=== PATIENT | female | born 1945 | race Caucasian/White ===

== ENCOUNTER 2019-04-22 15:50 | Inpatient (IN) ==
[2019-04-22] MEDS ORDERED: NS 1,000 ML IV ONE ×2 (16:05→16:06)
[2019-04-22 16:46] LABS: BASO# 0.14 X1000 (0.0-0.2); BASO% 1.1 % (0.0-0.8); EOS# 0.05 X1000 (0.0-0.7); EOS% 0.4 % (0.0-10.0); HEMATOCRIT 30.3 % (37.0-47.0); HEMOGLOBIN 9.8 g/dL (12.0-16.0); IMM GRAN# 1.68 X1000 (0.0-0.04); IMM GRAN% 13.4 % (0.0-0.5); LYMPH# 1.36 X1000 (1.2-3.4); LYMPH% 10.8 % (20.5-51.1); MCH 30.5 PG (27-31); MCHC 32.3 g/dL (33-37); MCV 94.4 FL (81-99); MONO# 1.22 X1000 (0.11-0.59); MONO% 9.7 % (1.7-9.3); MPV 10.3 FL (7.4-10.4); NEUT# 8.09 X1000 (1.4-6.5); NEUT% 64.6 % (42.2-75.2); PLT 258 X1000 (130-400); RBC 3.21 XMIL (4.2-5.4); RDW 16.6 % (11.5-14.5); WBC 12.54 X1000 (4.8-10.8)
[2019-04-22 16:52] LABS: ALB/GLOB RATIO 1.2; ALBUMIN 3.5 g/dL (3.5-5.0); CREATININE 1.2 mg/dL (0.5-0.9); MAGNESIUM 1.7 mg/dL (1.5-2.7); POTASSIUM 4.9 mmol/L (3.5-5.1); TOTAL BILIRUBIN 0.4 mg/dL (0.20-1.00); TOTAL PROTEIN 6.4 g/dL (6.3-8.3)
--- NOTE | 2019-04-22 17:56 | PROVIDER DOCUMENTATION ---
This chart was entered by Lala Kaplan Scribe, acting as scribe for Haider Myles MD. HPI-General Adult - General Chief Complaint: Weakness Stated Complaint: CANCER PT-DEHYDRATED Time Seen by Provider: 04/22/19 16:03 Source: patient Allergies/Adverse Reactions: Patient Allergies Allergy/AdvReac Type Severity Reaction Status Date / Time Penicillins Allergy ANAPHYLAXIS Verified 04/22/19 16:03 Sulfa (Sulfonamide Allergy NAUSEA/VOMI Verified 04/22/19 16:03 Antibiotics) TING Home Medications: Home Medication List Medication Instructions Recorded Confirmed Last Taken Type Acetaminophen/Diphenhydramine 1 ea PO HS 01/28/19 02/02/19 01/31/19 23:00 History [Tylenol Pm] Amlodipine Besylate [Norvasc] 2.5 mg PO DAILY 01/28/19 02/02/19 02/01/19 09:00 History Aspirin 81 mg PO DAILY 01/28/19 02/02/19 01/30/19 22:00 History Atorvastatin Calcium [Lipitor] 20 mg PO DAILY 01/28/19 02/02/19 02/01/19 22:00 History Cholecalciferol (Vitamin D3) 2,000 unit PO DAILY 01/28/19 02/02/19 02/01/19 22:00 History [Vitamin D3] Diphenoxylate/Atropine [Lomotil] 1 ea PO 4XDAY PRN PRN 01/28/19 02/02/19 01/30/19 12:00 History Flecainide Acetate 0.5 tab PO BID 01/28/19 02/02/19 02/01/19 22:00 History Glipizide 5 mg PO BID 01/28/19 02/02/19 02/01/19 22:00 History Metformin HCl 1,000 mg PO BID 01/28/19 02/02/19 02/01/19 09:00 History Metronidazole [Flagyl] 250 mg PO 4XDAY 01/28/19 02/02/19 01/30/19 12:00 History Pantoprazole [Protonix] 40 mg PO DAILY@0700 01/28/19 02/02/19 02/01/19 09:00 History Rivaroxaban [Xarelto] 20 mg PO DAILY 01/28/19 02/02/19 01/31/19 09:00 History Sucralfate 1 gm PO PRN PRN 01/28/19 02/02/19 02/01/19 13:00 History Hydrocodone/APAP 7.5 mg/325 mg 1 ea PO Q6H PRN PRN #15 tab 02/02/19 Unknown Rx [[place]-7.5] - History of Present Illness -Gen Adult Nature of Presenting Problems: 74 y/o female presents to ED with weakness, dehydration, and N/V/D onset several months ago. Pt reports she is currently on chemo for breast cancer and has intermittent bouts of these symptoms. Pt states she received IV fluids in office 2 days ago, but still feels dehydrated. Pt also reports abdominal soreness from vomiting. Pt is alert and oriented. Location of Pain/Injury: reports: none Pain Radiation: reports: no radiation Quality of Pain: reports: none Severity: reports: moderate Onset/Duration: reports: unsure (several months ago) Timing: reports: still present, intermittent Context/Activities at Onset: reports: none Modifying Factors: improves with: nothing Associated Symptoms: reports: diarrhea, nausea, vomiting, weakness, other (dehydration) Similar Symptoms Previously?: Yes Recently seen or treated by another doctor?: Yes Review of Systems - Adult - REVIEW OF SYSTEMS - ADULT Constitutional: reports: other (dehydration). denies: chills, fever Eyes: reports: no symptoms reported Ears, Nose, Mouth & Throat: reports: no symptoms reported Cardiovascular: denies: chest pain, palpitations Respiratory: denies: cough, shortness of breath Gastrointestinal: reports: diarrhea, nausea, vomiting. denies: abdominal pain Genitourinary: reports: no symptoms reported Musculoskeletal: denies: back pain, joint pain Integumentary: reports: no symptoms reported Neurological: reports: other (weakness). denies: dizziness/vertigo, seizure Psychiatric: reports: no symptoms reported Endocrine: reports: no symptoms reported Hematologic/Lymphatic: reports: no symptoms reported Allergic/Immunologic: reports: no symptoms reported All Other Systems: Reviewed and Negative Past History - Adult - PAST MEDICAL HISTORY-ADULT Review of Records: reports: Old Records Reviewed, Nursing Assessment Review, Medications Reviewed Major Childhood Illnesses: reports: denies history Cardiovascular: reports: HTN Respiratory: reports: sleep apnea Gastrointestinal: reports: denies history Obstetrical/Gynecological: reports: other (breast cancer) Genitourinary: reports: denies history Musculoskeletal: reports: denies history Neurological: reports: CVA Endocrine/Immune: reports: Diabetes Other Conditions: reports: denies history - PRIOR SURGERIES/PROCEDURES Surgical/Procedure History: reports: hysterectomy, breast (mastectomy) - IMMUNIZATION STATUS Childhood Immunizations: See Nurse Assessment Flu Vaccine: See Nurse Assessment - FAMILY HISTORY Family History: reviewed, not pertinent - SOCIAL HISTORY Smoking: non-smoker Substance Use: none/never Alcohol Use Frequency: never Living Situation: family Physical Exam-General - PHYSICAL EXAM-ADULT Initial Vital Signs Reviewed: Yes - CONSTITUTIONAL General Appearance: appears well, alert, no apparent distress - EYES Eyes: PERRL/EOMI, pink conjunctivae - HEAD, EARS, NOSE, MOUTH & THROAT HENMT: normocephalic/atraumatic, moist mucous membranes, normal ENT inspection - NECK Neck: non-tender, full range of motion - RESPIRATORY Respiratory: chest non-tender, lungs clear, normal breath sounds - CARDIOVASCULAR Cardiovascular: normal peripheral pulses, regular rate, rhythm - GASTROINTESTINAL (ABDOMEN) Abdominal Exam: normal bowel sounds, non tender, soft - MUSCULOSKELETAL Back Exam: normal inspection, no CVA tenderness, no vertebral tenderness Extremity: normal range of motion, non-tender, normal gait - SKIN Integumentary: warm/dry, pallor. negative: normal color - NEUROLOGIC Neurologic: grossly normal - PSYCHIATRIC Psych/Mental Status: normal mood/affect, normal thought content, normal thought process, oriented x 3 Progress - PLAN OF CARE/RESULTS Progress/Plan/Lab Results: Vital Signs - 8 hr 04/22/19 15:52 Temperature 98.2 F Pulse Rate 89 Respiratory Rate 18 Blood Pressure 103/54 O2 Sat by Pulse Oximetry 98 Orders Category Date Time Status CBC WITH DIFF [HEME] Stat Lab 04/22/19 16:05 Uncollected COMPREHENSIVE METABOLIC PANEL [CHEM] Stat Lab 04/22/19 16:05 Uncollected MAGNESIUM [CHEM] Stat Lab 04/22/19 16:05 Uncollected 0.9% Sodium Chloride Inj [Ns] 1,000 ml Med 04/22/19 16:05 Active IV 999 mls/hr 0.9% Sodium Chloride Inj [Ns] 1,000 ml Med 04/22/19 16:06 Active IV 999 mls/hr Laboratory Tests 04/22/19 04/22/19 16:14 16:14 WBC 12.54 H RBC 3.21 L Hgb 9.8 L Hct 30.3 L MCV 94.4 MCH 30.5 MCHC 32.3 L RDW Std Deviation 16.6 H Plt Count 258 MPV 10.3 Immature Gran % (Auto) 13.4 H Neut % (Auto) 64.6 Lymph % (Auto) 10.8 L [place] % (Auto) 9.7 H Eos % (Auto) 0.4 Baso % (Auto) 1.1 H Immature Gran # (Auto) 1.68 H Neut # (Auto) 8.09 H Lymph # (Auto) 1.36 Davidson # (Auto) 1.22 H Eos # (Auto) 0.05 Baso # (Auto) 0.14 Sodium 136 Potassium 4.9 Chloride 97 L Carbon Dioxide 21 L Anion Gap 18 BUN 9 Creatinine 1.2 H Estimated GFR/1.73 m2 44 BUN/Creatinine Ratio 8 Glucose 167 H Calculated Osmolality 274 Calcium 9.0 Magnesium 1.7 Total Bilirubin 0.40 AST 24 ALT 22 Alkaline Phosphatase 182 H Total Protein 6.4 Albumin 3.5 Globulin 2.9 Albumin/Globulin Ratio 1.2 Result Diagrams: 04/22/19 16:14 04/22/19 16:14 - REASSESSMENT Reassessment #1 Time Reassessed: 18:00 Status: improving (Pt reports she is feeling better. Fluids are still going.) Reassessment #2 Time Reassessed: 18:40 Status: improving (patient reports signif improvement; fluids are complete. will d/c for fu with Dr. Monson) - EKG 1 Time of EKG reading by physician:: 16:07 EKG Read and Signed by:: Haider Myles EKG Interpretation (*Must complete 3 of following elements*): Abnormal Rate: 78 Rhythm: NSR [place]: normal QRS: other (L posterior fascicular block) [place] Interval: prolonged ST Wave: non-specific ST changes Departure - Departure Date of Disposition Decision: 04/22/19 Time of Disposition Decision: 18:41 DIAGNOSIS: Dehydration, Chronic diarrhea, Adverse effects of medication Disposition: HOME 01 Certified Medical Emergency: Emergent Condition: Stable Referrals and Follow-Ups: None,PCP [Primary Care Provider] - - Critical Care Note This patient required my direct & personal management of CC.: No Attestation - Physician/ URMILA Attestation Patient care was provided by Advanced Practice Provider:: No The physician spent face to face time with patient:: Yes Advanced Practice Provider documentation review:: Supervising physician onsite and consulted in the evaluation and care of this patient. The physician did have a face to face encounter with the patient. This chart was documented by the indicated scribe, (Lala Kaplan, Yaa) and accurately reflects the services I performed and decisions made by me, Haider Myles MD, as attested by the provider's signature.
[2019-04-22 19:42] LABS: URINE SOURCE CLEAN CATCH
[2019-04-22 19:59] LABS: BILIRUBIN URINE NEGATIVE (NEGATIVE); BLOOD URINE TRACE (NEGATIVE); COLOR YELLOW; GLUCOSE URINE NEGATIVE (NEGATIVE); KETONE URINE NEGATIVE (NEGATIVE); LEUKOCYTES URINE NEGATIVE (NEGATIVE); NITRITE URINE NEGATIVE (NEGATIVE); PH URINE 5.5; PROTEIN URINE NEGATIVE (NEGATIVE); SP GRAVITY URINE 1.015; TURBIDITY URINE CLEAR (CLEAR); UR EPITHELIAL CELLS <10 /HPF (<10); URINE BACTERIA NEGATIVE /HPF; URINE RBC <10 /HPF (<10); URINE WBC <10 /HPF (<10); UROBILINOGEN URINE NORMAL (NORMAL)
--- NOTE | 2019-04-22 20:38 | Diag Imaging Result Doc PS360 ---
EXAM: CHEST-2 VIEWS 04/22/2019 HISTORY: FEVER, ON CHEMO TECHNIQUE: PA and lateral chest COMMENT: There is bibasilar atelectasis which was not the case at the time the previous study of 02/02/2019. The lungs are slightly better expanded than they were on the previous study. There is ill-defined opacity in the suprahilar region in both upper lobes which was also present previously. The heart size and pulmonary vascularity are stable in appearance. IMPRESSION: Minimal bibasilar atelectasis. Electronically signed by Harpal Galloway 04/22/2019 8:36 PM
[2019-04-22] MEDS ORDERED: MAXIPIME 2 GM in NS 100 ML IV ONE (21:10)
--- NOTE | 2019-04-22 21:50 | HISTORY AND PHYSICAL ---
PRIMARY CARE PHYSICIAN: Dr. Julian. CHIEF COMPLAINT: Fever. Not feeling well and also cough times the past week. HISTORY OF PRESENTING ILLNESS: A 72-year-old female with a history of breast cancer on chemotherapy, diabetes mellitus type 2, atrial fibrillation, CVA, and hypertension who presented to emergency department with 1-week history of having intermittent fevers and not feeling well. She had called her oncologist and she had laboratories done with that showed that she was neutropenic she was put on oral antibiotics; however, she did not have any improvement. She started having worsening fevers and coughing and subsequently had come to the emergency department. In the ED, she was evaluated and due to her presenting symptoms, it was thought that she would need admission for further management. At the time of my examination, she had denied any headache, vomiting, chest pain, shortness of breath or any weight changes but complained of cough and fever and not feeling well. PAST MEDICAL HISTORY: Includes diabetes mellitus type 2, chronic atrial fibrillation, CVA, hypertension, breast cancer. PAST SURGICAL HISTORY: Bilateral mastectomy, hysterectomy. ALLERGIES: Penicillin and sulfa. CURRENT MEDICATIONS: Include Norvasc 2.5 mg p.o. daily, aspirin 81 mg p.o. daily, Lipitor 20 mg p.o. daily, flecainide 150 mg half tablet p.o. b.i.d., glipizide 5 mg p.o. b.i.d., [place] 7.5 mg 1 p.o. q.6 hours, metformin 1000 mg p.o. b.i.d., pantoprazole 40 mg p.o. daily, Xarelto 20 mg p.o. daily, sucralfate 1 g p.o. daily. SOCIAL HISTORY: No history of smoking, alcohol or illicit drug use. FAMILY HISTORY: Positive for coronary disease in mother and father. REVIEW OF SYSTEMS: Fourteen point review of system is as HPI. Other systems negative. PHYSICAL EXAMINATION: GENERAL: Cooperative, friendly female. She is resting comfortably now. VITAL SIGNS: Temperature 98.2 degrees, pulse 89, respiration 18, blood pressure 103/54. HEENT: Atraumatic, normocephalic. Extraocular movements intact. PERRLA. NECK: No masses. CHEST: Bibasilar rales. CARDIOVASCULAR: Regular rate and rhythm. ABDOMEN: Soft. Positive bowel sounds. EXTREMITIES: Trace edema. NEUROLOGIC: She is awake, alert, oriented x3. : No bladder distention. SKIN: Warm. LABORATORIES AND STUDIES: WBCs 12.54, hemoglobin 9.8, hematocrit 30.3, platelets 258,000. Sodium 136, potassium 4.9, chloride 97, CO2 is 21, BUN is 9, creatinine is 1.2, glucose is 167. UA shows trace blood and negative for bacteria. Chest x-ray shows bibasilar atelectasis and ill-defined opacity in suprahilar region on both upper lobes. ASSESSMENT: A 74-year-old female with a history of breast cancer on chemotherapy, diabetes mellitus type 2, atrial fibrillation, cerebrovascular accident, hypertension who presented to emergency department with 1-week history of having fevers and cough. She was put on oral antibiotics by her oncologist for neutropenia. However, she continued to have fevers and persistent cough. It was suspected possibly she had early signs of pneumonia versus bronchitis. Subsequently, she will require admission for further management. DIAGNOSES: 1. Neutropenic fever. 2. Suspected pneumonia. 3. Chronic atrial fibrillation. 4. Diabetes mellitus type 2. 5. Hypertension. PLAN: 1. We will admit patient to medical floor with telemetry. 2. We will check blood cultures. Start patient on IV antibiotics. 3. We will also consult her oncologist. 4. We will continue her home medications for atrial fibrillation. 5. We will monitor blood glucose and put patient on sliding scale insulin regimen. 6. The patient is already on Xarelto and this will suffice for deep vein thrombosis prophylaxis. 7. We will continue to follow and reassess. Make further recommendation based on patient's clinical course. cc: Sachin Ramos MD
[2019-04-23] MEDS: NS 1,000 ML IV SCH ×2 (00:30→12:54)
[2019-04-23] MEDS: HUMULIN R SUBQ SCH ×4 (07:00→21:13)
[2019-04-23 07:40] LABS: BASO# 0.11 X1000 (0.0-0.2); BASO% 0.8 % (0.0-0.8); EOS# 0.05 X1000 (0.0-0.7); EOS% 0.3 % (0.0-10.0); HEMATOCRIT 26.5 % (37.0-47.0); HEMOGLOBIN 8.5 g/dL (12.0-16.0); IMM GRAN# 1.93 X1000 (0.0-0.04); IMM GRAN% 13.5 % (0.0-0.5); LYMPH# 1.27 X1000 (1.2-3.4); LYMPH% 8.9 % (20.5-51.1); MCH 30.6 PG (27-31); MCHC 32.1 g/dL (33-37); MCV 95.3 FL (81-99); MONO# 1.49 X1000 (0.11-0.59); MONO% 10.4 % (1.7-9.3); MPV 9.9 FL (7.4-10.4); NEUT# 9.48 X1000 (1.4-6.5); NEUT% 66.1 % (42.2-75.2); PLT 218 X1000 (130-400); RBC 2.78 XMIL (4.2-5.4); WBC 14.33 X1000 (4.8-10.8)
[2019-04-23 07:43] LABS: BANDS 6 % (0-1); LYMPHS 8 % (21-51); MONO 16 % (1-9); SEGS 64 % (42-75)
[2019-04-23] MEDS: ZOFRAN IV PRN (07:48)
--- NOTE | 2019-04-23 08:39 | EKG Report ---
Test Performed on : 04/22/2019 4:06:12 PM Test Reason : ED. No order in [place] Blood Pressure : / mmHG Vent. Rate : 078 BPM Atrial Rate : 078 BPM P-R Int : 174 ms QRS Dur : 084 ms QT Int : 444 ms P-R-T Axes : 000 136 160 degrees QTc Int : 506 ms Normal sinus rhythm. Left posterior fascicular block Nonspecific ST abnormality Prolonged QT Abnormal ECG No previous ECGs available Unconfirmed Result
[2019-04-23] MEDS ORDERED: MAXIPIME 1 GM in NS 50 ML IV SCH (10:00)
[2019-04-23] MEDS ORDERED: REGLAN PO PRN (12:35)
[2019-04-23] MEDS ORDERED: MAXIPIME 1 GM in NS 50 ML IV ONE (12:42)
--- NOTE | 2019-04-23 17:25 | PROGRESS NOTE ---
DATE: 04/23/2019 SUBJECTIVE: Patient has no major complaints. OBJECTIVE: Vital Signs: Blood pressure 100/66, heart rate 78, respiratory rate 15, temperature 99.8 degrees, with no fever documented. Cardiovascular: Regular rate and rhythm. Pulmonary: Bilateral breath sounds, diminished at the bases. GI: Soft, nontender, nondistended. Bowel sounds are positive. LABS: White count is 14, but she is not neutropenic. Her segmented neutrophils are 64 with 6% bands. She is not neutropenic. She does have a persistent fever in any case. ASSESSMENT AND PLAN: 1. The patient is admitted for fever while on chemotherapy, and she does not meet criteria for neutropenia. We will follow. We will continue empiric antibiotics. I bumped up her cefepime based on her kidney function and things of that nature. 2. Atrial fibrillation, rate controlled. She is on Xarelto and flecainide. 3. We will continue to monitor her electrolytes. 4. Dr. Monson has been consulted. 5. She does report protracted issues with abdominal pain. 6. If she has persistent fevers, then we will need to get repeat cultures, including culture of her port, but at this point she may just have pneumonia while developing bone marrow suppression, but she does not meet criteria for neutropenic fever. We will continue to follow. cc: Sherman Gilbert MD
[2019-04-23] MEDS: NORCO-7.5 PO PRN (19:52)
[2019-04-23] MEDS: CELEXA PO SCH (21:13)
[2019-04-23] MEDS: ZINC SULFATE PO SCH (21:14)
[2019-04-23] MEDS: TAMBOCOR PO SCH (21:14)
[2019-04-23] MEDS: ASPIRIN PO SCH (21:14)
[2019-04-24] MEDS: NS 1,000 ML IV SCH (00:47)
[2019-04-24] MEDS: MAXIPIME 2 GM in NS 100 ML IV SCH ×3 (00:47→23:36)
[2019-04-24] MEDS: ZOFRAN IV PRN ×2 (01:52→10:50)
[2019-04-24] MEDS: NORCO-7.5 PO PRN ×2 (04:11→10:50)
[2019-04-24] MEDS: HUMULIN R SUBQ SCH ×4 (06:15→21:33)
[2019-04-24] MEDS: PROTONIX PO SCH (06:16)
[2019-04-24 07:45] LABS: BASO# 0.05 X1000 (0.0-0.2); BASO% 0.3 % (0.0-0.8); EOS# 0.05 X1000 (0.0-0.7); EOS% 0.3 % (0.0-10.0); HEMATOCRIT 25.6 % (37.0-47.0); HEMOGLOBIN 8.1 g/dL (12.0-16.0); IMM GRAN# 1.78 X1000 (0.0-0.04); IMM GRAN% 11.2 % (0.0-0.5); LYMPH# 1.03 X1000 (1.2-3.4); LYMPH% 6.5 % (20.5-51.1); MCH 29.9 PG (27-31); MCHC 31.6 g/dL (33-37); MCV 94.5 FL (81-99); MONO# 1.32 X1000 (0.11-0.59); MONO% 8.3 % (1.7-9.3); MPV 10.1 FL (7.4-10.4); NEUT# 11.68 X1000 (1.4-6.5); NEUT% 73.4 % (42.2-75.2); PLT 206 X1000 (130-400); RBC 2.71 XMIL (4.2-5.4); RDW 16.8 % (11.5-14.5); WBC 15.91 X1000 (4.8-10.8)
[2019-04-24 08:07] LABS: AGAP 11; BUN 9 mg/dL (8-22); CHLORIDE 105 mmol/L (98-107); COSMO 274; CREATININE 0.9 mg/dL (0.5-0.9); ESTIMATED GFR > 60; GLUCOSE 157 mg/dL (70-104); MAGNESIUM 1.6 mg/dL (1.5-2.7); SODIUM 136 mmol/L (136-145); TCO2 20 mmol/L (25-35)
[2019-04-24 08:18] LABS: BANDS 8 % (0-1); LYMPHS 2 % (21-51); MONO 4 % (1-9); SEGS 82 % (42-75)
[2019-04-24] MEDS: VICON-C PO SCH (08:49)
[2019-04-24] MEDS: NORVASC PO SCH (08:50)
[2019-04-24] MEDS: TAMBOCOR PO SCH ×2 (08:50→21:34)
[2019-04-24] MEDS: CENTRUM SILVER PO SCH (08:50)
[2019-04-24] MEDS: XARELTO PO SCH (08:50)
[2019-04-24] MEDS: LIPITOR PO SCH (08:50)
[2019-04-24] MEDS: ZINC SULFATE PO SCH ×2 (08:50→21:34)
--- NOTE | 2019-04-24 16:12 | PROGRESS NOTE ---
DATE: 04/24/2019 OBJECTIVE: Vital Signs: Blood pressure is 130/48, heart rate 79, respiratory 18, temperature 98.7 degrees. Cardiovascular: Regular rate and rhythm. Pulmonary: Bilateral breath sounds. Clear to auscultation. GI: Soft, nontender, nondistended. Bowel sounds are positive. LABORATORY DATA: Her white count is 15, hemoglobin and hematocrit 8 and 25, platelets of 206. Electrolytes are stable. PROBLEM LIST: 1. Fever in the setting of recent chemotherapy, but the patient is not neutropenic. This is not neutropenic fever. She was never neutropenic as far as I can tell, so we will continue cefepime. She says that has caused her abdominal pain, but not consistently. We will pursue CT of the abdomen and pelvis. She does have risk factors for an overwhelming infection. She is definitely immune compromised, so we will pursue further imaging to make sure that there is nothing dire going on in chest and abdomen. 2. Atrial fibrillation appears to be stable. Continue regular medications. DISPOSITION: Pending her clinical status, she has technically not had any fevers since yesterday, so we will follow. cc: Sherman Gilbert MD
[2019-04-24] MEDS: ASPIRIN PO SCH (21:34)
[2019-04-24] MEDS: CELEXA PO SCH (21:34)
[2019-04-25] MEDS: ZOFRAN IV PRN ×3 (01:59→10:37)
[2019-04-25] MEDS: HUMULIN R SUBQ SCH ×4 (06:04→20:01)
[2019-04-25] MEDS: PROTONIX PO SCH (06:08)
[2019-04-25] MEDS: NORCO-7.5 PO PRN (06:13)
[2019-04-25 07:13] LABS: BASO# 0.08 X1000 (0.0-0.2); BASO% 0.5 % (0.0-0.8); EOS# 0.03 X1000 (0.0-0.7); EOS% 0.2 % (0.0-10.0); HEMOGLOBIN 8.3 g/dL (12.0-16.0); IMM GRAN# 1.54 X1000 (0.0-0.04); IMM GRAN% 9.3 % (0.0-0.5); LYMPH# 0.97 X1000 (1.2-3.4); LYMPH% 5.9 % (20.5-51.1); MCH 30.1 PG (27-31); MCHC 31.9 g/dL (33-37); MCV 94.2 FL (81-99); MONO% 7.9 % (1.7-9.3); MPV 10.3 FL (7.4-10.4); NEUT# 12.56 X1000 (1.4-6.5); NEUT% 76.2 % (42.2-75.2); PLT 207 X1000 (130-400); RBC 2.76 XMIL (4.2-5.4); WBC 16.48 X1000 (4.8-10.8)
[2019-04-25 07:30] LABS: AGAP 14; BUN 9 mg/dL (8-22); CALCIUM 8.1 mg/dL (8.8-10.2); CHLORIDE 103 mmol/L (98-107); COSMO 273; CREATININE 0.8 mg/dL (0.5-0.9); ESTIMATED GFR > 60; GLUCOSE 132 mg/dL (70-104); POTASSIUM 3.6 mmol/L (3.5-5.1); SODIUM 136 mmol/L (136-145); TCO2 19 mmol/L (25-35)
[2019-04-25 07:34] LABS: BANDS 6 % (0-1); BASO 2 % (0-1); LYMPHS 4 % (21-51); MONO 6 % (1-9); SEGS 78 % (42-75)
--- NOTE | 2019-04-25 08:04 | Diag Imaging Result Doc PS360 ---
EXAM: CT THORAX/ABD/PELVIS W/CON 04/24/2019 HISTORY: pneumonia,pain,persistent fever TECHNIQUE: This exam was performed using automated exposure control, adjustment of mA or kV according to patient size, and/or use of iterative reconstruction technique. COMMENT: Thorax: There are no filling defects present in the pulmonary arteries. The aorta is normal in caliber and there is no evidence of dissection. There are small bilateral pleural fluid collections. There is a hiatal hernia. There are surgical clips in the left axillary region. There is a ill-defined soft tissue density present in the lower axilla extending along the chest wall. There is also fluid collection or hematoma in the anterior right chest wall. This is presumably secondary to bilateral mastectomy which has occurred prior to the previous study of 04/03/2019. There is a relatively prominent node present in the left axilla measuring up to 11 mm which has decreased in size since 01/08/2019 at which time it measured over 13 mm. There is a Port-A-Cath on the right in the internal jugular. There are some nonspecific aorticopulmonary window nodes measuring up to 10 mm in size. These do not appear to have changed appreciably since the previous study of 01/08/2019. The pleural fluid collections and basilar atelectasis present bilaterally have occurred since that time. There are patchy ill-defined groundglass opacities bilaterally which may be indicative of pneumonia and/or pulmonary edema. This was also not present previously. There is a hiatal hernia. The regional skeleton appears to be intact. ABDOMEN: There are some atherosclerotic calcifications in the aorta but there is no evidence of aneurysm and the mesenteric and renal arteries are patent. There is no evidence of nephrolithiasis. There is some fullness of the renal pelves bilaterally which may be congenital. There are bilateral renal cortical cysts with a fairly large cyst in the lower pole on the left measuring 3.6 cm in diameter. There is pericholecystic fluid. There are no apparent gallstones. The spleen and adrenal glands are within normal limits. The pancreas is somewhat atrophic in appearance. The liver is unchanged in appearance since the previous study of 04/03/2019. There is a small lucency in the medial anterior left hepatic lobe which has not changed. 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 There is no evidence of significant adenopathy. There is no evidence of bowel obstruction. There is a partially calcified and fat density nodule present in the left iliac fossa region which was also present on the previous study and is presumably of no significance. Pelvis: There is diverticulosis in the sigmoid colon without evidence of active diverticulitis. There is a small amount of free fluid present which was not the case on the previous study. There has been hysterectomy. The urinary bladder is not distended. There are degenerative disc and facet changes in the lumbar spine particularly at the L4-5 level. There is dense calcification in the disc space at L1-2 which has not changed since the previous study. There is a well-circumscribed lucency in the posterior L1 vertebral body slightly to the right of midline which has not changed since the previous study and is probably related to a hemangioma. IMPRESSION: 1. Bilateral pleural effusions with bibasilar atelectasis versus pneumonia. Pulmonary edema versus pneumonia throughout the lungs. 2. Pericholecystic fluid. The possibility of acalculous cholecystitis cannot be excluded. 3. Nonspecific free pelvic fluid. Electronically signed by Harpal Galloway 04/25/2019 8:01 AM
[2019-04-25] MEDS: XARELTO PO SCH (08:19)
[2019-04-25] MEDS: CENTRUM SILVER PO SCH (08:19)
[2019-04-25] MEDS: VICON-C PO SCH (08:19)
[2019-04-25] MEDS: ZINC SULFATE PO SCH ×2 (08:19→20:00)
[2019-04-25] MEDS: TAMBOCOR PO SCH ×2 (08:19→20:01)
[2019-04-25] MEDS: LIPITOR PO SCH (08:19)
[2019-04-25] MEDS: NORVASC PO SCH (08:19)
[2019-04-25] MEDS: MAXIPIME 2 GM in NS 100 ML IV SCH (12:25)
[2019-04-25] MEDS: LASIX IV SCH (15:35)
--- NOTE | 2019-04-25 17:12 | Diag Imaging Result Doc PS360 ---
EXAM: US GB < RUQ (LIMITED) 04/25/2019 HISTORY: elevated liver enzymes TECHNIQUE: Right upper quadrant ultrasound COMMENT: The pancreas is normal in appearance. The aorta and inferior vena cava are unremarkable. The liver is slightly hyperechoic. The gallbladder is without stones but is tender to palpation. The wall is somewhat thickened but there is no evidence of para cholecystic fluid. There is no evidence of biliary dilatation the common bile duct measuring less than 5 mm in diameter. There is mild hydronephrosis on the right kidney. Compared to 01/13/2015 the liver was similar in appearance. The right collecting system was not as distended. IMPRESSION: 1. Hepatic steatosis. 2. The possibility of acalculous cholecystitis cannot be excluded. 3. Right hydronephrosis of uncertain etiology. Electronically signed by Harpal Galloway 04/25/2019 5:09 PM
[2019-04-25] MEDS ORDERED: REGLAN PO ONE (18:58)
[2019-04-25] MEDS: FLAGYL 500 MG/NS 500 MG/100 ML IVPB IV SCH (19:34)
[2019-04-25] MEDS: MIRALAX PO SCH (19:37)
[2019-04-25] MEDS: ASPIRIN PO SCH (20:00)
[2019-04-25] MEDS: CELEXA PO SCH (20:00)
--- NOTE | 2019-04-25 20:45 | PROGRESS NOTE ---
DATE: 04/25/2019 SUBJECTIVE: Patient has no major complaints. She is still nauseous and she is not eating very well. No more diarrhea. OBJECTIVE: Blood pressure 157/53, heart rate 79, respiratory 16, temperature 99.3 degrees.Cardiovascular: Regular rate and rhythm. Pulmonary: Bilateral breath sounds. Clear to auscultation. GI: Soft, nontender, nondistended. Bowel sounds are positive. I did not appreciate any significant right upper quadrant tenderness. LABORATORY DATA: White count 16, hemoglobin and hematocrit 8 and 26, platelets 207,000. PROBLEM LIST: 1. Likely pneumonia. We will continue empiric antibiotics. She is on cefepime. I am going to add Flagyl just until we know there is no cholecystitis and we will follow clinically. Dr. Monson is following as well. 2. Pulmonary edema. We will continue diuretics. 3. Atrial fibrillation is controlled on her current medications. She is still anticoagulated. 4. Breast cancer status post treatment. She has completed her chemotherapy for the time being from what I understand. So we will continue to monitor. I am going to schedule her Reglan. DISPOSITION: Pending her clinical status, but I think we will kind of see how things are going and continue to follow closely. cc: Sherman Gilbert MD
[2019-04-26] MEDS: MAXIPIME 2 GM in NS 100 ML IV SCH ×2 (00:11→14:55)
[2019-04-26] MEDS: LASIX IV SCH ×2 (00:16→14:58)
[2019-04-26] MEDS: FLAGYL 500 MG/NS 500 MG/100 ML IVPB IV SCH ×4 (00:50→22:33)
[2019-04-26] MEDS: ZOFRAN IV PRN ×3 (02:36→21:25)
[2019-04-26] MEDS: HUMULIN R SUBQ SCH ×4 (06:05→21:32)
[2019-04-26] MEDS: PROTONIX PO SCH ×2 (06:15→06:38)
[2019-04-26] MEDS: REGLAN PO SCH ×4 (06:15→16:28)
[2019-04-26 07:53] LABS: BASO# 0.07 X1000 (0.0-0.2); BASO% 0.5 % (0.0-0.8); EOS# 0.03 X1000 (0.0-0.7); EOS% 0.2 % (0.0-10.0); HEMATOCRIT 27.9 % (37.0-47.0); HEMOGLOBIN 9.1 g/dL (12.0-16.0); IMM GRAN# 1.07 X1000 (0.0-0.04); IMM GRAN% 7.6 % (0.0-0.5); LYMPH# 1.04 X1000 (1.2-3.4); LYMPH% 7.4 % (20.5-51.1); MCH 30.3 PG (27-31); MCHC 32.6 g/dL (33-37); MONO# 1.36 X1000 (0.11-0.59); MONO% 9.6 % (1.7-9.3); MPV 10.4 FL (7.4-10.4); NEUT# 10.56 X1000 (1.4-6.5); NEUT% 74.7 % (42.2-75.2); PLT 243 X1000 (130-400); RDW 16.7 % (11.5-14.5); WBC 14.13 X1000 (4.8-10.8)
[2019-04-26 08:21] LABS: BANDS 8 % (0-1); LYMPHS 2 % (21-51); MONO 4 % (1-9); SEGS 82 % (42-75)
--- NOTE | 2019-04-26 13:46 | HEMO/ONC CONSULTATION ---
DATE: 04/26/2019 REASON FOR CONSULTATION: The patient is a known breast cancer patient of ours. HISTORY OF PRESENT ILLNESS: The patient is known to us in the clinic for treatment of left breast lobular carcinoma, T3, N2, ER 100%, MD 70%, and HER2 negative. She came to the ER this week with complaints of fever, not feeling well, and an increased cough. She states for the past week, she had intermittent fevers and was neutropenic on April 20 in the office. She was put on Levaquin for a week. She had also been having increased diarrhea that was complicated last week with nausea and dry heaving and now has upper right quadrant tenderness. She is going to HIDA scan today to determine at this is possible cholecystitis. The patient is known to us in the clinic for breast cancer. In November 2018, she had bilateral mastectomies with sentinel lymph node dissection and subsequently axillary lymph node dissection. Her CT of the chest, abdomen, and pelvis revealed scattered nodules in the lung with no definite pulmonary metastasis, tiny area of low-density attenuation in the liver without definite liver metastasis. Her bone scan was with out of bone metastasis. She was started on Taxotere and Cytoxan on 02/09/2019. She completed her 4th cycle on 04/13/2019. PAST MEDICAL HISTORY: Atrial fibrillation, pacemaker, diabetes, hypertension, and stroke PAST SURGICAL HISTORY: Breast surgery, lymph nodes, and pacemaker. ALLERGIES: Sulfa and penicillin. MEDICATIONS: Xarelto, aspirin, flecainide, Norvasc, Protonix, Flagyl, metformin, glipizide, Lipitor, and Mobic. SOCIAL HISTORY: She denies smoking, alcohol, or illicit drug use. REVIEW OF SYSTEMS: Positive for fatigue, diarrhea, abdominal pain. LABORATORY DATA: WBC 14.13, hemoglobin 9.1, hematocrit 27.9, platelet count 243,001, ANC 10.5. PHYSICAL EXAMINATION: Vital Signs: Temperature 98.9 degrees, pulse rate 70, respiratory rate 15, blood pressure 120/41, O2 saturation 97% on room air. General: She is in 0/10 pain. Respiratory: Upper chest clear to auscultation. Cardiovascular: Normal S1, S2, regular rate and rhythm. Gastrointestinal: Soft. Nondistended. Positive bowel sounds. Right upper quadrant tenderness with guarding. Extremities: Trace edema. Neurological: Awake, alert, and oriented x3. Skin: Warm, dry, and intact. RADIOLOGICAL DATA: Right upper quadrant ultrasound on 04/25/2019 showed hepatic steatosis, right hydronephrosis of uncertain etiology, and a possibility of acalculous cholecystitis that cannot be excluded. HIDA scan pending. 04/25/2019 CT of thorax, abdomen, and pelvis: Bilateral pleural effusions with bibasilar atelectasis versus pneumonia. Pulmonary edema versus pneumonia throughout the lung. Nonspecific free pelvic fluid. ASSESSMENT: 1. Possible pneumonia. 2. Possible cholecystitis. 3. Breast cancer. PLAN: The patient is status post 4 cycles of chemotherapy. Continue to monitor for anemia. We will consult surgeon who placed her port for possible cholecystectomy, which is Dr. Gao. Continue to treat pneumonia per medical team. We will continue to follow. Dictated by EMERSON Urban for Drake Monson MD Patient seen and examined. As above. Currently has right upper quadrant pain and tenderness. CT of the abdomen pelvis and abdominal ultrasound are suggestive of acalculus cholecystitis. Continue antibiotics. Consult surgery. From her breast cancer standpoint, she completed her last cycle of chemotherapy about 2 weeks ago. Currently not neutropenic. She did receive Neulasta which could partially be contributing to her elevated white count. Check anemia profile. I will continue to follow with you. Drake Monson M.D. cc: Drake Monson MD [facility]
--- NOTE | 2019-04-26 14:37 | Diag Imaging Result Doc PS360 ---
EXAM: HIDA SCAN W/ EJECTION FRACTION HISTORY: acalculous cholecystitis TECHNIQUE: Nuclear medicine HIDA scan COMPARISON: None. FINDINGS: 5.2 mCi Choletec administered. There is normal uptake within the liver. Normal filling of the gallbladder with emptying into the small bowel. Ensure was given to determine the gallbladder ejection fraction. This is calculated to be 85% at 60 minutes. IMPRESSION: Normal HIDA scan with gallbladder ejection fraction. Electronically signed by Anibal Barton 04/26/2019 2:35 PM
[2019-04-26] MEDS: TAMBOCOR PO SCH ×2 (14:42→21:34)
[2019-04-26] MEDS: NORVASC PO SCH (14:58)
[2019-04-26] MEDS: VICON-C PO SCH (14:59)
[2019-04-26] MEDS: XARELTO PO SCH (14:59)
[2019-04-26] MEDS: MIRALAX PO SCH (14:59)
[2019-04-26] MEDS: LIPITOR PO SCH (14:59)
[2019-04-26] MEDS: CENTRUM SILVER PO SCH (14:59)
[2019-04-26 18:58] LABS: ALB/GLOB RATIO 0.9; CALCIUM 7.9 mg/dL (8.8-10.2); CREATININE 1.1 mg/dL (0.5-0.9); TOTAL BILIRUBIN 0.46 mg/dL (0.20-1.00); TOTAL PROTEIN 6.5 g/dL (6.3-8.3)
--- NOTE | 2019-04-26 21:03 | CONSULTATION ---
DATE OF CONSULTATION: 04/26/2019 HISTORY OF PRESENT ILLNESS: Danna Garcia is a 74-year-old, white female who had breast surgery in [place], and has completed her chemotherapy under the direction of Dr. Monson approximately 2 weeks ago. She was admitted through the emergency department on 04/22/2019 with diarrhea and dehydration. During her hospitalization, she has begun hurting in her right upper quadrant. She has been evaluated with x-rays, which include a chest, abdomen, and pelvic CT scan and an abdominal ultrasound, and now a HIDA scan. The abdominal CT scan and abdominal ultrasound suggested a distended gallbladder, but no stones, and a HIDA scan showed prompt filling of the gallbladder with emptying into the small bowel, and an ejection fraction of over 80%. Her liver function tests are normal. PAST MEDICAL HISTORY: 1. Breast cancer, just recently completed chemotherapy. 2. Diabetes mellitus type 2. 3. Atrial fibrillation. 4. Stroke. 5. Hypertension. 6. Recent port placement per Dr. Gao. 7. She has had bilateral mastectomies and hysterectomy. ALLERGIES: Penicillin and sulfa. MEDICATIONS: 1. Norvasc. 2. Aspirin. 3. Lipitor 4. Flecainide. 5. Glipizide. 6. [place]. 7. Metformin. 8. Pantoprazole. 9. Xarelto. 10. Sucralfate. SOCIAL HISTORY: No smoking. FAMILY HISTORY: Coronary artery disease. REVIEW OF SYSTEMS: A 14-point review of systems was performed. She has completed chemotherapy about 2 weeks ago. She has had chronic diarrhea. PHYSICAL EXAMINATION: General: On exam, Ms. Garcia has no hair. She is awake, cooperative, no acute distress. No jaundice. No oral lesions. No cervical or supraclavicular lymphadenopathy. She has bilateral mastectomies. Abdomen: Soft. She is mildly tender in the right upper quadrant, but no palpable mass. Her abdomen is not distended. Rectal and Vaginal: Exams were not performed. Extremities: She does have palpable femoral pulses. No significant peripheral edema. No ischemic ulcers. Neurologic: No neurologic deficit. CT scan of her abdomen suggested distended gallbladder. No inflammation. Ultrasound, no gallstones. HIDA scan normal with an ejection fraction of over 80%. Liver function tests are normal. IMPRESSION: 1. Breast cancer, just completing chemotherapy. 2. Chronic diarrhea. 3. Upper abdominal discomfort. PLAN: I agree with rehydration and intravenous antibiotics. I think symptoms of her gallbladder are less likely with the HIDA scan and normal liver function tests. I believe a GI evaluation is forthcoming. She is on blood thinners, Xarelto, and aspirin. We will try to avoid surgery while she is recovering from chemotherapy and her chronic diarrhea. cc: Modesta Kulkarni MD
[2019-04-26] MEDS: CELEXA PO SCH (21:34)
[2019-04-26] MEDS: ASPIRIN PO SCH (22:37)
[2019-04-27] MEDS: LASIX IV SCH ×3 (02:08→20:42)
[2019-04-27] MEDS: FLAGYL 500 MG/NS 500 MG/100 ML IVPB IV SCH ×2 (04:45→10:52)
[2019-04-27] MEDS: REGLAN PO SCH ×3 (06:32→16:42)
[2019-04-27] MEDS: PROTONIX PO SCH (06:32)
[2019-04-27] MEDS: HUMULIN R SUBQ SCH ×4 (06:52→20:43)
[2019-04-27] MEDS: LIPITOR PO SCH (08:18)
[2019-04-27] MEDS: VICON-C PO SCH (08:18)
[2019-04-27] MEDS: TAMBOCOR PO SCH ×2 (08:18→20:42)
[2019-04-27] MEDS: XARELTO PO SCH (08:19)
[2019-04-27] MEDS: NORVASC PO SCH (08:19)
[2019-04-27] MEDS: MIRALAX PO SCH (08:22)
[2019-04-27 08:31] LABS: AGAP 14; ALB/GLOB RATIO 0.8; ALBUMIN 2.8 g/dL (3.5-5.0); ALKALINE PHOSPHATASE 169 U/L (32-104); BUN 13 mg/dL (8-22); CALCIUM 8.3 mg/dL (8.8-10.2); CHLORIDE 102 mmol/L (98-107); COSMO 284; CREATININE 0.9 mg/dL (0.5-0.9); ESTIMATED GFR > 60; GLUCOSE 140 mg/dL (70-104); GOT 23 U/L (10-30); GPT 21 U/L (10-36); POTASSIUM 3.1 mmol/L (3.5-5.1); SODIUM 141 mmol/L (136-145); TCO2 25 mmol/L (25-35); TOTAL BILIRUBIN 0.48 mg/dL (0.20-1.00); TOTAL PROTEIN 6.1 g/dL (6.3-8.3)
[2019-04-27 08:46] LABS: BASO# 0.07 X1000 (0.0-0.2); BASO% 0.7 % (0.0-0.8); EOS# 0.01 X1000 (0.0-0.7); EOS% 0.1 % (0.0-10.0); HEMATOCRIT 27.5 % (37.0-47.0); HEMOGLOBIN 8.8 g/dL (12.0-16.0); IMM GRAN# 0.59 X1000 (0.0-0.04); IMM GRAN% 5.8 % (0.0-0.5); LYMPH# 0.79 X1000 (1.2-3.4); LYMPH% 7.8 % (20.5-51.1); MCH 29.9 PG (27-31); MCV 93.5 FL (81-99); MONO# 1.03 X1000 (0.11-0.59); MONO% 10.2 % (1.7-9.3); MPV 10.1 FL (7.4-10.4); NEUT# 7.63 X1000 (1.4-6.5); NEUT% 75.4 % (42.2-75.2); PLT 249 X1000 (130-400); RBC 2.94 XMIL (4.2-5.4); RDW 16.7 % (11.5-14.5); WBC 10.12 X1000 (4.8-10.8)
[2019-04-27 08:53] LABS: IRON SATURATION 40 %; TIBC 136 ug/dL; TOTAL IRON 55 ug/dL (49-151); UNBOUND IRON 81 ug/dL (112-346)
[2019-04-27 09:19] LABS: BANDS 4 % (0-1); LYMPHS 12 % (21-51); MONO 4 % (1-9); SEGS 76 % (42-75)
--- NOTE | 2019-04-27 10:09 | GASTROENTEROLOGY CONSULTATION ---
DATE: 04/27/2019 REASON FOR CONSULTATION: Chronic diarrhea. HISTORY OF PRESENT ILLNESS: Ms. Danna Garcia is a 74-year-old woman with a past medical history of hypertension, hyperlipidemia, prior CVA x2 with no residual symptoms, noninsulin-dependent diabetes type 2, atrial fibrillation on Xarelto, history of diverticulosis with diverticulitis, and bilateral breast cancer, status post mastectomy and chemotherapy with Taxol and Cytoxan (her last cycle was on 04/13/2019), who presented with fever and fatigue, found to have pneumonia. The patient reports having diarrhea for the last 6 months, and has required admissions for IV fluids in the recent past. She says that her diarrhea started prior to starting chemotherapy, although since starting chemo, her diarrhea has become worse. She describes having loose, foul-smelling stools 3 to 4 times a day with mucus. She does not complain of any particular abdominal pain. She has lost about 20 pounds over this period. She occasionally has bright red blood per rectum intermittently that would last for a few days, then stop that she attributes to hemorrhoids. She has been receiving Levaquin a week after chemotherapy, which she has been taking for 7 days at a time in the setting of neutropenia. Her appetite has been poor. Since admission, she has had a couple episodes of dry heaving. Her last colonoscopy was [address] Puri. Of note, the patient reports starting metformin about 6 to 7 months ago, around the time that her diarrhea started. She was initially on 1000 mg twice a day, which caused her diarrhea, and this was decreased to 500 mg twice a day. She denies any family history of any GI diseases, including inflammatory bowel disease or malignancies. She does take pantoprazole for acid reflux, and occasionally Carafate. No other new medications. For diarrhea, she has been taking Lomotil, which helps. REVIEW OF SYSTEMS: As per HPI. Other symptoms include some lower abdominal soreness. A 12-point review of systems is otherwise negative. PAST MEDICAL HISTORY: Noninsulin-dependent diabetes, CVA x2 with no residual symptoms, hypertension, bilateral breast cancer, history of diverticulitis, diverticulosis, GERD. PAST SURGICAL HISTORY: Bilateral mastectomy in 10/2018, hysterectomy. FAMILY HISTORY: Positive for coronary disease in mother and father. No history of GI malignancies or inflammatory bowel disease. SOCIAL HISTORY: No smoking, alcohol, or drug use. HOME MEDICATIONS: Include Norvasc, aspirin, Lipitor, flecainide, glipizide, [place], metformin, pantoprazole, Xarelto, Carafate p.r.n. ALLERGIES: Penicillin and sulfa. PHYSICAL EXAMINATION: Vital Signs: Temperature of 98.2, heart rate 66, respiratory rate 19, blood pressure 126/51, O2 saturation 98% on room air. General: The patient is awake, alert, oriented, in no acute distress. HEENT: Sclerae anicteric. Moist mucous membranes. Extraocular motor intact. Neck: Supple. No JVD or lymphadenopathy. Cardiac: Regular rate and rhythm. No murmurs. Lungs: Clear to auscultation bilaterally. No wheezing. Abdomen: Nondistended. Bowel sounds present. Minimal tenderness, primarily in the lower abdomen. No rebound or guarding. No ascites. Extremities: No clubbing, cyanosis, or edema. Neurologic: Nonfocal. LABORATORY DATA: White count of 10.12, hemoglobin of 8.8, platelets of 249,000, percent neutrophils 75.4 with 4% bands. Sodium 141, potassium 3.1, chloride 102, bicarb 25, BUN 13, creatinine 0.9, glucose of 140. Iron 55, TIBC 136, percent saturation of 40. Total bilirubin of 0.48, AST of 23, ALT of 21, alkaline phosphatase 169, total protein 6.1, albumin of 2.8. Stool cultures are negative. Fecal white blood cell counts are few. Clostridium difficile toxin negative. Blood cultures x2 show no growth to date. Fecal Hemoccult negative. IMAGING: Chest x-ray on 04/22/2019 showed minimal bibasilar atelectasis. CT of the chest, abdomen, and pelvis showed bilateral pleural effusions with bibasilar atelectasis versus pneumonia, pulmonary edema versus pneumonia throughout the lungs, pericholecystic fluid, the possibility of acalculous cholecystitis could not be excluded, nonspecific free pelvic fluid. Abdominal ultrasound on 04/25/2019 showed hepatic steatosis, the possibility of acalculous cholecystitis could not be excluded, right hydronephrosis of uncertain etiology, there were no gallstones, the common bile duct measures 5 mm in diameter. HIDA scan on 04/26/2019 was normal with normal gallbladder ejection fraction. ASSESSMENT AND PLAN: Ms. Danna Garcia is a 74-year-old woman with past medical history significant for diabetes, on metformin, breast cancer, status post mastectomy and chemotherapy, who presented with pneumonia. Gastroenterology was consulted for chronic diarrhea. She has had negative stool studies, including Clostridium difficile, ova and parasites, Hemoccult, and culture. Of note, the patient's diarrhea started shortly after initiating metformin for her diabetes. She has not trialed off of metformin. She has not been on metformin since she had been in the hospital. She notes having improvement of diarrhea since being started on Flagyl. She has not had significant diarrhea for the last couple of days, one loose bowel movement this morning, two yesterday. Of note, she does report having intermittent rectal bleeding, likely from hemorrhoids. This is occasional and has not occurred since she has been in the hospital. Her labs are notable for leukocytosis that has now resolved. She did receive Neulasta after her last round of chemotherapy. She also has anemia without iron deficiency, which is also likely related to her chemotherapy. Other notable findings include hypoalbuminemia, weight loss, hypokalemia. She has been seen by Hematology here in the hospital, and Surgery. There was some concern for possible acalculous cholecystitis, although the HIDA scan is normal. At this time, I recommend that we hold metformin as I suspect this may be the etiology of her diarrhea. Continue supportive care with Lomotil. Gastrointestinal soft diet. She should have a diagnostic esophagogastroduodenoscopy and colonoscopy, which the patient prefers that this be done as an outpatient as she recovers from her pneumonia. She is on probiotic currently, and Metamucil for her gastroesophageal reflux disease. Continue pantoprazole once daily. Unclear benefit of Flagyl, although this could be treating her possible bacterial overgrowth. I would recommend discontinuing upon discharge. Differential of her diarrhea includes microscopic colitis, malabsorptive diarrhea, bacterial overgrowth, less likely inflammatory bowel disease, celiac disease, pancreatic insufficiency. The patient, from a gastrointestinal standpoint, is stable to be discharged with followup in 1 to 2 weeks for outpatient evaluation of her diarrhea, including esophagogastroduodenoscopy and colonoscopy. Thank you for this consult. Please call with any questions.
--- NOTE | 2019-04-27 10:50 | HEMO/ONC PROGRESS NOTE ---
DATE: 04/27/2019 SUBJECTIVE: The patient had no significant events over the evening. She states that she feels a little bit better today. She still has some nausea with right upper quadrant pain. She has ongoing diarrhea. She was seen and evaluated for surgical consult yesterday. OBJECTIVE: Vital Signs: Temperature 98.2 degrees, pulse rate 66, respiratory rate 19, blood pressure 126/51, O2 saturation 98% on room air, 0/10 pain. General: The patient is sitting upright in bed in no distress. Respiratory: Lungs are clear to auscultation. Normal respiratory effort. Cardiovascular: Normal S1, S2. Regular rate and rhythm. No murmurs, rubs, or gallops appreciated. Gastrointestinal: Soft and nondistended. Positive bowel sounds. Right upper quadrant tenderness with guarding. Extremities: Trace edema. Neurological: Awake, alert, and oriented x3. Skin: Warm, dry, and intact. RADIOLOGY: HIDA scan shows normal HIDA scan with gallbladder ejection fraction of 85%. LABORATORY DATA: WBC 10.12, hemoglobin 8.8, hematocrit 27.5, platelet count 249,000. ANC 7.63. Potassium 3.1, creatinine 0.9, calcium 8.3. Magnesium 1.6. Iron profile adequate. ASSESSMENT: 1. Breast cancer, status post chemotherapy. 2. Diarrhea. 3. Upper abdominal discomfort. 4. Possible pneumonia. 5. Atrila fibrillation on xarelto. PLAN: We believe her Neulasta is partially contributing to her elevated white count. Her iron profile so far is adequate. We will continue to follow up on her B12 and folate, which could be contributing to her anemia. We have added probiotics and fiber to her medication regimen to aid in the relief of diarrhea. The pain does not appear to be coming from her gallbladder. We will continue to monitor and follow closely. Dictated by EMERSON Urban for Drake Monson MD Patient seen and examined. Her abdominal pain and diarrhea and continues to improve. She reports of seeing improvement since starting Flagyl. HIDA scan was normal. At this point enterocolitis is suspected and this may be either infectious or from her chemotherapy. Appreciate Dr. Perkins consultation. We will place GI consultation. Hopefully home soon. Drake Monson M.D. cc: Drake Monson MD [facility]
[2019-04-27] MEDS: CULTURELLE PO SCH ×2 (10:52→20:42)
[2019-04-27] MEDS: METAMUCIL PO SCH ×2 (10:52→20:42)
[2019-04-27] MEDS: CENTRUM SILVER PO SCH (10:57)
[2019-04-27] MEDS ORDERED: POTASSIUM CHLORIDE 20% LIQUID PO ONE (12:22)
[2019-04-27] MEDS: MAXIPIME 2 GM in NS 100 ML IV SCH ×3 (12:34)
--- NOTE | 2019-04-27 12:46 | PROGRESS NOTE ---
DATE: 04/27/2019 SUBJECTIVE: The patient complains of diarrhea that she states that she has had for the last 6 months. Otherwise, she states that she feels a lot better. OBJECTIVE: Vital Signs: Temperature 98.2 degrees, blood pressure 126/51, heart rate 66, respirations 19, and O2 saturation 98% on room air. General: This is a chronically ill-appearing elderly female lying in bed in no acute distress. HEENT: Head normocephalic and atraumatic. Heart: S1, S2 normal. Regular rate and rhythm. Lungs: Clear to auscultation bilaterally. No wheezing. No rales. No rhonchi. Abdomen: Positive bowel sounds. Soft, nontender, and nondistended. Extremities: No edema. No cyanosis. No calf tenderness. Neurologic: The patient is alert and oriented x4. LABORATORY: White blood cell count 10, hemoglobin 8.8, hematocrit 27, and platelets 249,000. Sodium 141, potassium 3.1, chloride 102, CO2 25, BUN 13, creatinine 0.9 and glucose 140. ASSESSMENT AND PLAN: 1. Suspected pneumonia. So far, the blood cultures have been negative. The patient is improving from a respiratory standpoint. Also, her white blood cell count has come down and the chest x ray shows no infiltrates. 2. Chronic diarrhea. GI has been consulted. The patient's stool studies are unremarkable. 3. Atrial fibrillation. Continue on flecainide and Xarelto. 4. Breast cancer status post chemotherapy. Management as per Dr. Monson. 5. Hypokalemia. We will replace the patient's potassium. 6. Anemia. Stable. 7. Situational depression. Continue on Celexa. 8. Disposition. We will consult physical therapy. cc: MD GUERA Manzanares
[2019-04-27] MEDS ORDERED: MAGNESIUM SULFATE 2 GM/S.W.I. 2 GM/50 ML IVPB IV ONE (13:04)
[2019-04-27] MEDS: ZOFRAN IV PRN (13:24)
--- NOTE | 2019-04-27 13:51 | Diag Imaging Result Doc PS360 ---
EXAM: CHEST-2 VIEWS HISTORY: pneumonia TECHNIQUE: Chest two views COMPARISON: 04/22/2019 FINDINGS: The lungs are hyperexpanded. The heart is not enlarged left pacemaker. Right jugular portacatheter is unchanged. No pneumothorax. The vessels are not distended. There are no infiltrates. No pleural effusions. IMPRESSION: No pneumonia Electronically signed by Anibal Barton 04/27/2019 1:49 PM
[2019-04-27] MEDS: CELEXA PO SCH (20:42)
[2019-04-27] MEDS: ASPIRIN PO SCH (20:42)
[2019-04-28] MEDS: MAXIPIME 2 GM in NS 100 ML IV SCH ×2 (00:16→12:39)
[2019-04-28] MEDS: REGLAN PO SCH ×2 (06:29→12:24)
[2019-04-28] MEDS: PROTONIX PO SCH (06:29)
[2019-04-28] MEDS: HUMULIN R SUBQ SCH ×2 (06:41→12:23)
[2019-04-28 07:03] LABS: HEMATOCRIT 29.2 % (37.0-47.0); HEMOGLOBIN 9.4 g/dL (12.0-16.0); MCH 31.1 PG (27-31); MCHC 32.2 g/dL (33-37); MCV 96.7 FL (81-99); MPV 10.1 FL (7.4-10.4); RBC 3.02 XMIL (4.2-5.4); RDW 17.2 % (11.5-14.5); WBC 9.68 X1000 (4.8-10.8)
[2019-04-28 07:21] LABS: ALB/GLOB RATIO 0.8; ALBUMIN 3.1 g/dL (3.5-5.0); CALCIUM 8.3 mg/dL (8.8-10.2); POTASSIUM 3.5 mmol/L (3.5-5.1); TOTAL BILIRUBIN 0.42 mg/dL (0.20-1.00); TOTAL PROTEIN 6.8 g/dL (6.3-8.3)
[2019-04-28] MEDS: NORVASC PO SCH (08:27)
[2019-04-28] MEDS: CENTRUM SILVER PO SCH (08:28)
[2019-04-28] MEDS: CULTURELLE PO SCH (08:28)
[2019-04-28] MEDS: XARELTO PO SCH (08:28)
[2019-04-28] MEDS: LIPITOR PO SCH (08:28)
[2019-04-28] MEDS: TAMBOCOR PO SCH (08:28)
[2019-04-28] MEDS: VICON-C PO SCH (08:28)
[2019-04-28] MEDS: METAMUCIL PO SCH (08:28)
[2019-04-28] MEDS: LASIX IV SCH (08:36)
--- NOTE | 2019-04-28 09:13 | HEMO/ONC PROGRESS NOTE ---
DATE: 04/28/2019 HISTORY OF PRESENT ILLNESS/CHIEF COMPLAINT: The patient had no significant events over the evening. She was consulted by GI yesterday and they are in agreement that her diarrhea is likely related to her increase in metformin use. The patient states that since she has been in the hospital, she has not had any metformin and her diarrhea is actually improving. The patient feels strong enough and is requesting to go home. She believes she can manage her medications at home. OBJECTIVE: Vital Signs: Temperature 98.4 degrees, pulse rate 70, respiratory rate 12, blood pressure 132/51, O2 saturation 96% on room air. She is in 0/10 pain. Physical Examination: General: Elderly female in no acute distress, sitting up, already groomed this morning. Respiratory: Lungs are clear to auscultation. Normal respiratory effort. Cardiovascular: Normal S1, S2. Regular rate and rhythm. No murmurs, rubs, or gallops appreciated. Gastrointestinal: Soft, nondistended. Bowel sounds are positive. Extremities: Trace edema. Neurological: Alert, oriented x3. Skin: Warm, dry, and intact. Yesterday's chest x-ray reveals no pneumonia present. Laboratory: WBC 9.68, hemoglobin 9.4, hematocrit 29.2, platelet count 273,000. Creatinine 1.0, calcium 8.3, magnesium 1.7. B12 and folate were adequate. ASSESSMENT: 1. Breast cancer, status post chemotherapy. 2. Chronic diarrhea. 3. Atrial fibrillation, on Xarelto. PLANS: The patient's leukocytosis has resolved. The patient states her diarrhea is improving. The patient is now on probiotics and Metamucil. The patient states that her diarrhea began about 6 months ago when she doubled her metformin dosage. We appreciate Dr. Cabrera's consultation. From our standpoint, the patient appears ready to go home. Dictated by EMERSON Urban for Drake Monson MD Patient seen and examined. As above. Her white count has normalized. Her diarrhea has improved. Her right upper quadrant abdominal pain is also improving. Continue Flagyl for another 5 days. She is okay for discharge from my standpoint. Follow-up with me in 1 week. She will follow-up with GI as well. Drake Monson M.D. cc: MD GUERA Yanes
--- NOTE | 2019-04-28 10:42 | PROVIDER PROGRESS NOTE ---
Progress Note SUBJECTIVE: No acute overnight events. Afebrile. No N/V/F, CP, SOB. She has mild lower abdominal soreness. Diarrhea resolved. Tolerating solids. OBJECTIVE: Last Vital Signs Temp 98.4 F 04/28/19 07:42 Pulse 70 04/28/19 07:42 Resp 12 04/28/19 07:42 BP 132/51 04/28/19 07:42 Pulse Ox 96 04/28/19 07:42 Height 5 ft 6 in Weight 170 lb GEN: awake, alert, NAD HEENT: anicteric, EOMI, MMM NECK: supple, no jvd CV: RRR, no mrg PULM: CTAB, no wheezing ABD: soft ND, minimal lower abdominal TTP, NABS, no rebound or guarding EXT: no cce NEURO: nonfocal LABS: 04/28/19 04/28/19 06:26 06:26 WBC 9.68 Hgb 9.4 L Plt Count 273 Sodium 136 Potassium 3.5 Chloride 98 Carbon Dioxide 27 BUN 15 Creatinine 1.0 H Glucose 147 H Total Bilirubin 0.42 AST 19 ALT 19 Alkaline Phosphatase 155 H Total Protein 6.8 Albumin 3.1 L ASSESSMENT AND PLAN: Ms. Danna Garcia is a 74-year-old woman with past NIDDm2, breast cancer status post mastectomy and chemotherapy, who presented with pneumonia. GI was consulted for chronic diarrhea. She has had negative stool studies, including Clostridium difficile, ova and parasites, Hemoccult, and culture. Her diarrhea is likely iatrogenic in the setting of metformin use. Her diarrhea has since resolved. # Chronic diarrhea: likely secondary to metformin - hold metformin on discharge - continue probiotic and metamucil - lomotil prn # Leukocytosis: resolved; likely from pneumonia vs neulasta # Possible acalculous cholecystitis; HIDA scan is normal; seen by surgery; no surgical intervention indicated at this time # GERD: continue PPI # Breast cancer: defer mgmt to Dr. Monson Will sign off. Outpatient follow-up with Dr. Cabrera in 2-4 weeks, patient will need outpatient EGD/colonoscopy
[2019-04-28 11:25] VITALS: BP 131/48
--- NOTE | 2019-05-23 08:19 | DISCHARGE SUMMARY ---
ADMISSION DATE: 04/22/2019 DISCHARGE DATE: 04/28/2019 FINAL DISCHARGE DIAGNOSES: 1. Pneumonia. 2. Chronic diarrhea. 3. Atrial fibrillation. 4. Breast cancer, status post chemotherapy. 5. Anemia of chronic disease. 6. Hypokalemia. 7. Situational depression. CONSULTATIONS: 1. Oncology consultation with Dr. Monson. 2. GI consultation with Dr. Cabrera. HOSPITAL COURSE: Ms. Hastings is a 74-year-old female with a history of breast cancer, status post recent chemotherapy, who presented to the ER with generalized weakness and malaise. On admission, the patient was noted to be febrile with an infiltrate on chest x-ray. The patient was admitted. Blood cultures were obtained and the patient was started on broad-spectrum antibiotics. Over the course of the hospitalization, the patient's fever resolved. Oncology was also consulted. The patient also complained of persistent loose stools for the last several months so GI was consulted. Stool studies were obtained that were noted to be unremarkable. After further questioning, the patient stated that she had been on metformin and noticed that the diarrhea occurred whenever she was taking the medication. The metformin was held during this hospitalization and the patient's diarrhea improved. The patient was seen by GI who recommended endoscopy once the patient was over her acute issues, as outpatient. The patient continued to improve clinically and was ultimately cleared for discharge home. DISCHARGE MEDICATIONS: 1. Januvia 25 mg p.o. daily. 2. Lactobacillus 1 tablet oral twice a day. 3. Norvasc 2.5 mg oral daily. 4. Tylenol PM 1 tablet oral at bedtime. 5. Lipitor 20 mg p.o. daily. 6. Carafate 1 g oral as needed. 7. Protonix 40 mg oral daily. 8. Glipizide 5 mg oral daily. 9. Flecainide half a tablet oral twice a day. 10. Aspirin 81 mg p.o. daily. 11. Xarelto 20 mg p.o. daily. 12. Vitamin D3 2000 units oral daily. 13. [place] 7.5 one tablet oral every 6 hours p.r.n. for pain. 14. Zinc 220 mg oral twice a day. 15. Reglan 10 mg oral twice a day p.r.n. 16. Multivitamin 1 tablet oral daily. 17. Vitamin B complex 1 tablet oral daily. DISCHARGE DIET: An 1800, ADA diet. ACTIVITY: As tolerated. FOLLOWUP INSTRUCTIONS: The patient will need to follow up with Dr. Monson as scheduled. The patient will also follow up with Dr. Cabrera as outpatient for an eventual endoscopy. cc: Rosetta Rodas MD
== END 2019-04-28 13:31 | disposition home health service (06) | DRG 194 ==
LOC: ED 15:50 → 3N 21:38 → SUATTDRO 21:38
PROVIDERS: ATTEND Internal Medicine
CPT/HCPCS: 71020; 71046; 71260; 74177; 76705; 78227; 80048; 80053; 81001; 82270; 82607; 82728; 82746; 82948; 83540; 83550; 83630; 83735; 85025; 85027; 87040; 87045; 87046; 87081; 87177; 87205; 87324; 87427; 87430; 87798; 88313; 89055; 93005; 96361; 96365; 97162; 97530; 99285; A9270; A9537; J0692; J1642; J1940; J2405; J3475; J7030; Q9967; S0030; XXXXX